=== PATIENT | male | born 1990 | race Hispanic/Latino ===

== ENCOUNTER 2019-04-21 09:20 | Outpatient (CLI) | payer OTHER ==
[2019-04-21 10:02] LABS: Blood Urea Nitrogen 9 mg/dL (9-20)
--- NOTE | 2019-04-21 10:58 | Cat Scan Report ---
CT head/brain wo/w con INDICATION / CLINICAL INFORMATION: 28 years Male; GLAUCOMA/MACULOPATHY. TECHNIQUE: Routine CT head with and without contrast. All CT scans at this location are performed usi ng CT dose reduction for ALARA by means of automated exposure control. COMPARISON: None. FINDINGS: BRAIN / INTRACRANIAL CONTENTS: No acute hemorrhage, mass effect, midline shift, hydrocephalus, or acu te, large territorial infarct. No chronic infarct or atrophy appreciated. No significant white matter abnormality. I see no signs of abnormal enhancement following contrast demonstration. CRANIOCERVICAL JUNCTION: No significant abnormality. ORBITS: No significant abnormality of visualized orbits. SINUSES / MASTOIDS: No significant abnormality the visualized paranasal sinuses or mastoid air cells. ADDITIONAL FINDINGS: Prominent soft tissue is seen in the roof the nasopharynx, most likely related t o reactive adenoidal tissue. IMPRESSION: 1. No focal mass, hemorrhage, hydrocephalus, or acute, large territorial infarct. Signer Name: Stephane Burnette MD, III Signed: 04/21/2019 10:54 AM Workstation Name: [id number]
== END 2019-04-21 09:21 | disposition home or self-care (01) ==
LOC: CT 09:20
PROVIDERS: ATTEND Family Medicine
DX: H35.389 Toxic maculopathy, unspecified eye (principal); H40.9 Unspecified glaucoma
CPT/HCPCS: 36415; 70470; 82565; 84520; Q9967